=== PATIENT | female | born 1970 | race Caucasian/White ===

== ENCOUNTER 2016-11-02 16:24 | Emergency (ER) | payer OTHER | END 2016-11-02 19:40 | disposition home or self-care (01) | LOC: FER 16:24 | DX: J06.9 Acute upper respiratory infection, unspecified (principal); R51 Headache; R11.0 Nausea; F41.9 Anxiety disorder, unspecified; E78.5 Hyperlipidemia, unspecified; F32.9 Major depressive disorder, single episode, unspecified; Z79.899 Other long term (current) drug therapy; Z87.891 Personal history of nicotine dependence | CPT/HCPCS: 87450; 87804; 87899; 99283; J1885 ==